=== PATIENT | female | born 1960 | race Caucasian/White ===

== ENCOUNTER 2024-01-22 21:01 | Observation (INO) ==
[2024-01-22 21:50] LABS: ABS Eosinophils 0.1 10^3/uL (0.0-0.5); ABS Lymphocytes 1.7 10^3/uL (1.0-4.8); ABS Neutrophils 7.2 10^3/uL (1.5-7.6); Eosinophil % 0.9 %; Hematocrit 35.8 % (35-45); Lymphocyte % 16.7 %; Mean Corpuscular Hemoglobin 29.7 pg (27-33); Mean Corpuscular Hgb Conc 33.5 g/dL (31-36); Mean Corpuscular Volume 88.4 fL (80-97); Mean Platelet Volume 6.6 fL (7.5-11.2); Platelet Count 358 10^3/uL (150-450); Red Blood Count 4.05 10^6/uL (3.63-4.92); Red Cell Distribution Width 14.6 % (12-17)
[2024-01-22 21:59] LABS: INR 1.13 (0.85-1.14)
[2024-01-22] MEDS: Lactated Ringers 1000 ml BAG 1,000 ML IV ONE (21:59)
[2024-01-22] MEDS: cefTRIAXone 2 gm/50 mL D5W 2 GM/50 ML BAG IV ONE (21:59)
[2024-01-22 22:40] LABS: Albumin 4.2 g/dL (3.2-5.2); Albumin/Globulin Ratio 1.5 (1-3); C Reactive Protein 147.6 mg/L (<8.01); Calcium 8.7 mg/dL (8.6-10.3); Creatinine, Serum 0.76 mg/dL (0.51-0.95); Globulin 2.8 g/dL (2-4); Potassium 3.8 mmol/L (3.5-5.0); Total Bilirubin 0.4 mg/dL (0.2-1.0)
[2024-01-22] MEDS: Ondansetron 4 mg VIAL 2 MG/ML 2 ml VIAL IV ONE (22:43)
[2024-01-22] MEDS: Morphine 4 MG/ML VIAL (1 ml) IV ONE (22:43)
[2024-01-22] MEDS: HYDROmorphone 1 MG/1 ML SYRINGE IV SLOW PU ONE (23:29)
[2024-01-23] MEDS: HYDROmorphone 1 MG/1 ML SYRINGE IV ONE ×2 (00:58→03:36)
[2024-01-23] MEDS: Iohexol 300 (CONTRAST) 10 ML SDV IV ONE (02:14)
[2024-01-23] MEDS: HYDROmorphone 1 MG/1 ML SYRINGE IV SLOW PU ONE ×3 (05:28→11:49)
[2024-01-23] MEDS: Acetaminophen IV 1 GM/100ML 1,000 MG/100 ML BAG IV ONE (05:28)
[2024-01-23] MEDS: Morphine 4 MG/ML VIAL (1 ml) IV ONE (10:28)
[2024-01-23] MEDS: Piperacillin/Tazobac 3.375 BAG 3.375 GM/100 ML BAG IV ONE (10:30)
[2024-01-23] MEDS ORDERED: Al Hydrox/Mg Hydrox/Simet LIQ 30 ML UDC PO PRN (12:04)
[2024-01-23] MEDS ORDERED: Piperacillin/Tazobac 3.375 BAG 3.375 GM/100 ML BAG IV ONE (12:07)
[2024-01-23] MEDS ORDERED: Zosyn per Pharmacy NOTE FOLLOW UP SCH (13:00)
[2024-01-23] MEDS: Enoxaparin 40 MG/0.4 ML SYR SUBCUT SCH (14:12)
[2024-01-23] MEDS: Morphine 2 MG/ML SYRINGE IV PRN (14:40)
[2024-01-23] MEDS: ZOSYN 3.375 GM Q8H per EXTENDED INFUSION IV SCH ×2 (14:45→15:50)
[2024-01-23] MEDS: Chlorhexidine MOUTHWASH 0.12% 15 ML UDC SWISH SPIT SCH (15:41)
[2024-01-24] MEDS: Venlafaxine XR 75 mg PO SCH (07:31)
[2024-01-24 09:15] LABS: ABS Basophils 0.1 10^3/uL (0.0-0.1); ABS Eosinophils 0.1 10^3/uL (0.0-0.5); ABS Lymphocytes 1.2 10^3/uL (1.0-4.8); ABS Neutrophils 6.6 10^3/uL (1.5-7.6); Eosinophil % 1.6 %; Hematocrit 34.3 % (35-45); Hemoglobin 11.5 g/dL (11.5-14.3); Lymphocyte % 13.5 %; Mean Corpuscular Hemoglobin 29.7 pg (27-33); Mean Corpuscular Hgb Conc 33.4 g/dL (31-36); Mean Corpuscular Volume 88.8 fL (80-97); Mean Platelet Volume 7.3 fL (7.5-11.2); Platelet Count 353 10^3/uL (150-450); Red Blood Count 3.86 10^6/uL (3.63-4.92); Red Cell Distribution Width 14.6 % (12-17)
[2024-01-24] MEDS ORDERED: Senna TAB 8.6 mg TAB PO PRN (15:30)
[2024-01-24] MEDS ORDERED: Magnesium Hydroxide LIQ 30 ML UDC PO PRN (15:30)
[2024-01-24] MEDS ORDERED: Polyethylene Glycol 3350 17 GM PACKET PO PRN (15:30)
[2024-01-24] MEDS: Nystatin TOP POWDER 15 GM BTL TOPICAL SCH (17:28)
[2024-01-25] MEDS: Ondansetron 4 mg VIAL 2 MG/ML 2 ml VIAL IV PRN (08:32)
[2024-01-25 14:56] VITALS: BP 146/68
== END 2024-01-25 16:20 | disposition home or self-care (01) ==
LOC: EDHOLD 21:01 → ED 21:01 → SUATTDRO 01-23 12:09 → MEDTELE 01-23 14:27
PROVIDERS: ADMIT Internal Medicine; ATTEND Student in an Organized Health Care Education/Training Program